=== PATIENT | female | born 1965 | race Hispanic/Latino ===

== ENCOUNTER → 2019-10-07 | Outpatient (CLI) | payer BC | END | disposition home or self-care (01) | LOC: RAH 15:37 | PROVIDERS: ATTEND Obstetrics & Gynecology | DX: Z12.31 Encounter for screening mammogram for malignant neoplasm of breast (principal) | CPT/HCPCS: 77067 ==

== ENCOUNTER → 2021-02-02 | Outpatient (CLI) | payer BC | END | disposition home or self-care (01) | LOC: RAH 15:21 | PROVIDERS: ATTEND Obstetrics & Gynecology | DX: Z12.31 Encounter for screening mammogram for malignant neoplasm of breast (principal) | CPT/HCPCS: 77067 ==

== ENCOUNTER → 2022-04-25 | Outpatient (CLI) | payer BC | END | disposition home or self-care (01) | LOC: RAH 13:59 | PROVIDERS: ATTEND Internal Medicine | DX: Z12.31 Encounter for screening mammogram for malignant neoplasm of breast (principal) | CPT/HCPCS: 77067 ==

== ENCOUNTER → 2023-10-06 | Outpatient (CLI) | payer BC | END | disposition home or self-care (01) | LOC: RAH 08:33 | PROVIDERS: ATTEND Physician Assistant | DX: Z12.31 Encounter for screening mammogram for malignant neoplasm of breast (principal) | CPT/HCPCS: 77067 ==